=== PATIENT | female | born 1945 | race Caucasian/White ===

== ENCOUNTER 2018-01-01 14:34 | Emergency (ER) | payer MEDICARE, OTHER ==
[~2018-01-01] VITALS: Ht 157.5 cm; Wt 63.0 kg
[2018-01-01 14:40] VITALS: BP 191/90; PULSE 82; RESP 16; TEMP 98.4; O2SAT 97
[2018-01-01] MEDS ORDERED: LIDOCAINE 1%/EPINEPHrine 1:100,000 SOLN 20 ML VIAL INFIL ONE (15:00)
[2018-01-01] MEDS ORDERED: TETANUS/DIPHTHERIA TOXOID ADULT 0.5 ML VIAL IM ONE (15:00)
[2018-01-01] MEDS ORDERED: LIDOCAINE HCL 1% PF 30 ML VIAL ONE (15:08)
--- NOTE | 2018-01-01 15:32 | PD ---
HPI Chief Complaint: Injury Time Seen by Provider: 14:55 Travel History International Travel<30 days: No Contact w/Intl Traveler<30days: No Traveled to known affect area: No History of Present Illness HPI 72-year-old female presents emergency department for laceration to the base of the dorsal right index finger. She sustained this while moving some boxes from a metal edge. She has no loss of function or sensation. Bleeding is controlled prior to arrival. Patient is placed to butterfly bandages prior to arrival. She is unsure of her last tetanus shot. Pain is minimal. She is allergic to sulfa. [facility] Past Medical History Hx Anticoagulant Therapy: Yes (81MG ASA) Social History Alcohol Use: Yes Tobacco Use: No Substance Use: No Allergies-Medications (Allergen,Severity, Reaction): Coded Allergies: Sulfa (Sulfonamide Antibiotics) (Verified Allergy, Unknown, 01/01/18) Review of Systems Except as stated in HPI: all other systems reviewed are Neg General / Constitutional: No: Fever Eyes: No: Visual changes HENT: No: Headaches Cardiovascular: No: Chest Pain or Discomfort Respiratory: No: Shortness of Breath Gastrointestinal: No: Abdominal Pain Genitourinary: No: Dysuria Musculoskeletal: No: Pain Skin: Positive Lesions, No Rash Neurologic: No: Weakness Psychiatric: No: Depression Endocrine: No: Polydipsia Hematologic/Lymphatic: No: Easy Bruising Physical Exam Narrative GENERAL: Patient appears in no acute distress. SKIN: Warm and dry. Normal color. Normal turgor. Patient has a superficial laceration across the dorsal proximal right index finger. HEAD: Atraumatic. Normocephalic. EYES: Pupils equal and round. No scleral icterus. No injection or drainage. ENT: No nasal bleeding or discharge. Mucous membranes pink and moist. Pharynx is clear. Airways patent NECK: Trachea midline. Supple and nontender CARDIOVASCULAR: Regular rate and rhythm. RESPIRATORY: No accessory muscle use. Clear to auscultation. Breath sounds equal bilaterally. MUSCULOSKELETAL: Extremities without clubbing, cyanosis, or edema. No obvious deformities. Patient has full strength and range of motion of the right hand and fingers. Neurovascular exam is normal NEUROLOGICAL: Awake and alert. No obvious cranial nerve deficits. Motor grossly within normal limits. Five out of 5 muscle strength in the arms and legs. Normal speech. PSYCHIATRIC: Appropriate mood and affect; insight and judgment normal. Data Data Last Documented VS Vital Signs Date Time Temp Pulse Resp B/P (MAP) Pulse Ox O2 Delivery O2 Flow Rate FiO2 01/01/18 14:40 98.4 82 16 191/90 (123) 97 Orders Orders Lidocai-Epi 1%-1:100,000 Inj (Xylocaine- (01/01/18 15:00) Tetanus/Diphtheria Tox Adult (Tetanus/Di (01/01/18 15:00) Lidocaine Pf 1% Inj (Xylocaine-Mpf 1% In (01/01/18 15:08) MDM Medical Decision Making Medical Screen Exam Complete: Yes Emergency Medical Condition: Yes Differential Diagnosis Right hand contusion. Right hand laceration. Need for tetanus. Narrative Course Patient is medically stable at time of exam Laceration is repaired. Tetanus is given 0.5 mg IM. Wound instructions are reviewed. Patient to follow-up in 1 week for suture removal or sooner as needed. Procedures Procedure Narrative LACERATION LOCATION: Proximal dorsal right index finger LENGTH: 1.5 cm NUMBER OF STITCHES/ASHLEY: 5 simple interrupted REPAIR: The area of the laceration was prepped with Betadine and sterilely draped. The laceration was infiltrated with 2.5 mL's 1% lidocaine with epi. The wound was copiously irrigated and explored without evidence of foreign body , tendon injury or neurovascular injury. The wound was closed using 5-0 Ethilon. This was a single layer repair. A sterile dressing was applied. The patient was advised to keep the dressing clean and dry. Patient tolerated the procedure well. Diagnosis Primary Impression: Laceration of index finger of right hand without complication Patient Instructions: Care For Your Stitches (ED), General Instructions, Tetanus (DC) Additional Instructions: Laceration is repaired. Tetanus is given 0.5 mg IM. Wound instructions are reviewed. Patient to follow-up in 1 week for suture removal or sooner as needed. Med/Other Pt SpecificInfo: No Meds Exist/No RX given, Wound Care Disposition: 01 DISCHARGE HOME Condition: Stable Ken [place] January 01, 2018 15:32
== END 2018-01-01 16:18 | disposition home or self-care (01) ==
LOC: NEPK 14:34
DX: S61.210A Laceration without foreign body of right index finger without damage to nail, initial encounter (principal); W45.8XXA Other foreign body or object entering through skin, initial encounter; Z79.82 Long term (current) use of aspirin; Z23 Encounter for immunization
CPT/HCPCS: 12001; 90471; 90714